=== PATIENT | female | born 1970 | race Hispanic/Latino ===

== ENCOUNTER 2019-10-24 19:14 | Emergency (ER) | payer SELFPAY ==
[2019-10-24 21:01] LABS: Absolute Lymphocytes (CBC) 2.7 K/uL (0.7-4.9); Basophils % 1.2 % (0-1.3); Hematocrit 39.8 % (36.0-45.0); Lymphocytes % 30.1 % (15.3-44.8); MPV 10.8 fL (7.6-11.3); RBC Red Blood Cell Count 4.81 M/uL (3.86-4.86)
[2019-10-24] MEDS ORDERED: ONDANSETRON 4 MG/2 ML VIAL ONE (21:04)
[2019-10-24] MEDS ORDERED: NA CHLORIDE 0.9% 1,000 ML ONE (21:04)
[2019-10-24] MEDS ORDERED: MORPHINE 4 MG/ML SYR ONE (21:04)
--- NOTE | 2019-10-24 21:09 | RAD REPORT ---
EXAM DESCRIPTION: CT - Abdomen Pelvis Wo Contrast - 10/24/2019 8:25 pm CLINICAL HISTORY: FLANK PAIN , abdominal pain for 2 weeks COMPARISON: No comparisons TECHNIQUE: Axial [address] imaging of the abdomen and pelvis was performed without IV contrast. No IV contrast was given because of allergy, abnormal renal function, patient refusal or physician re quest. No oral contrast. All CT scans are performed using dose optimization technique as appropriate and may include automated exposure control or mA/KV adjustment according to patient size. FINDINGS: No suspicious findings in the lung bases. The liver, spleen and pancreas show no suspicious findings on non-contrast imaging. Gallbladder and b iliary tree are also without suspicious finding. No hydronephrosis or suspicious renal mass. No significant adrenal finding. Isodense renal masses an d pyelonephritis cannot be excluded in the absence of IV contrast. The urinary bladder is without sig nificant finding. No acute uterine finding. No ovarian or adnexal abnormalities. No dilated bowel loops or bowel wall thickening. No acute appendicitis findings. A few small mesenter ic lymph nodes are seen. No free air, free fluid or inflammatory stranding. No hernia, mass or bulky lymphadenopathy. No acute or destructive bone process. The patient does have significant degenerative change. Advanced degenerative disc disease present at L3-4 and L5-S1. Significant spinal stenosis at L3-4 and signifi cant foraminal stenosis changes at L4-5 and severely on the left at L5-S1. IMPRESSION: CT abdomen and pelvis imaging shows no acute or suspicious finding in the peritoneal or retroperitoneal spaces. Patient has very advanced for a lumbar spine degenerative change with significant L3-4 central spinal stenosis and significant foraminal stenosis at the lower 3 disc levels most severe on the left at L5 -S1.
[2019-10-24 21:24] LABS: ALT/SGPT 22 U/L (12-78); AST/SGOT 16 U/L (15-37); Albumin 3.5 g/dL (3.4-5.0); Alkaline Phosphatase 87 U/L (45-117); BUN Blood Urea Nitrogen 16 mg/dL (7-18); Bicarbonate 28 mmol/L (21-32); Bilirubin Direct < 0.1 mg/dL (0-0.2); Bilirubin Total 0.3 mg/dL (0.2-1.0); Glucose Level 78 mg/dL (74-106); Lipase 168 U/L (73-393); Potassium 3.4 mmol/L (3.5-5.1); Protein, Total 7.8 g/dL (6.4-8.2); Sodium Level 139 mmol/L (136-145)
--- NOTE | 2019-10-24 21:46 | EDPHYS ---
Physician Documentation [facility] Name: Lois Marcial Age: 49 yrs Sex: Female : 1970 Arrival Date: 10/24/2019 Time: 19:15 Bed 23 Private MD: ED Physician Chriss Joiner HPI: 10/23 20:10 This 49 yrs old Female presents to ER via Ambulatory with complaints of Back mh7 Injury, Leg Pain. 20:11 The patient presents with pain that is acute, with no known mechanism of injury. The mh7 symptoms are located in the left flank. Onset: The symptoms/episode began/occurred 2 week(s) ago. The pain radiates to the left leg. Associated signs and symptoms: Pertinent positives: nausea, Pertinent negatives: abdominal pain, chest pain, constipation, dysuria, fever, headache, hematuria, incontinence, numbness, tingling, urinary retention, vomiting, weakness. 20:12 Onset: The symptoms/episode began/occurred and became worse 3 day(s) ago. The problem mh7 was sustained from unknown cause. Modifying factors: The patient symptoms are alleviated by nothing, the patient symptoms are aggravated by movement. Severity of symptoms: At their worst the symptoms were moderate, yesterday, in the emergency department the symptoms have improved, moderately. Historical: - Allergies: 19:22 No Known Allergies; ll1 - PMHx: 19:22 Hypertension; ll1 - PSHx: 19:22 Hernia repair; Tubal ligation; ll1 - Immunization history:: Flu vaccine is up to date. - Social history:: Smoking status: Patient denies any tobacco usage or history of. Patient/guardian denies using alcohol, street drugs, tobacco products. ROS: 20:12 Constitutional: Negative for fever, chills, and weight loss, Eyes: Negative for injury, mh7 pain, redness, and discharge, ENT: Negative for injury, pain, and discharge, Neck: Negative for injury, pain, and swelling, Cardiovascular: Negative for chest pain, palpitations, and edema, Respiratory: Negative for shortness of breath, cough, wheezing, and pleuritic chest pain, : Negative for injury, bleeding, discharge, and swelling, Skin: Negative for injury, rash, and discoloration, Neuro: Negative for headache, weakness, numbness, tingling, and seizure, Psych: Negative for depression, anxiety, suicide ideation, homicidal ideation, and hallucinations, Allergy/Immunology: Negative for hives, rash, and allergies, Endocrine: Negative for neck swelling, polydipsia, polyuria, polyphagia, and marked weight changes, Hematologic/Lymphatic: Negative for swollen nodes, abnormal bleeding, and unusual bruising. Exam: 20:12 Constitutional: This is a well developed, well nourished patient who is awake, alert, mh7 and in no acute distress. Head/Face: Normocephalic, atraumatic. Eyes: Pupils equal round and reactive to light, extra-ocular motions intact. Lids and lashes normal. Conjunctiva and sclera are non-icteric and not injected. Cornea within normal limits. Periorbital areas with no swelling, redness, or edema. Neck: Trachea midline, no thyromegaly or masses palpated, and no cervical lymphadenopathy. Supple, full range of motion without nuchal rigidity, or vertebral point tenderness. No Meningismus. Chest/axilla: Normal chest wall appearance and motion. Nontender with no deformity. No lesions are appreciated. Cardiovascular: Regular rate and rhythm with a normal S1 and S2. No gallops, murmurs, or rubs. Normal PMI, no JVD. No pulse deficits. Respiratory: Lungs have equal breath sounds bilaterally, clear to auscultation and percussion. No rales, rhonchi or wheezes noted. No increased work of breathing, no retractions or nasal flaring. 20:12 Skin: Warm, dry with normal turgor. Normal color with no rashes, no lesions, and no evidence of cellulitis. MS/ Extremity: Pulses equal, no cyanosis. Neurovascular intact. Full, normal range of motion. Neuro: Awake and alert, GCS 15, oriented to person, place, time, and situation. Cranial nerves II-XII grossly intact. Motor strength 5/5 in all extremities. Sensory grossly intact. Cerebellar exam normal. Normal gait. Psych: Awake, alert, with orientation to person, place and time. Behavior, mood, and affect are within normal limits. 20:12 Abdomen/GI: Inspection: abdomen appears normal, Bowel sounds: normal, in all quadrants, Palpation: mild abdominal tenderness, in the left lower quadrant, Rectal exam: the exam is deferred, because of patient request, Indicators: McBurney's point is not tender, Storm's sign is negative, Rovsing's sign is negative, Obturator sign is negative, Psoas sign is negative, Liver: no appreciated palpable abnormalities, Hernia: not appreciated. 20:12 Back: pain, is absent, ROM is normal, normal spinal alignment noted, CVA tenderness, that is moderate, is noted on the left, vertebral tenderness, is not appreciated, muscle spasm, is not present, Straight leg raises: of both lower extremities does not illicit pain. 20:12 : CVA tenderness, on the left, Pelvic Exam: The exam is refused by the patient/guardian. The risks and consequences are understood by the patient, Bladder: is normal, Rectal exam: is refused by patient or guardian. Vital Signs: 19:20 BP 135 / 74; Pulse 88; Resp 18; Temp 98.0; Pulse Ox 97% ; Pain 8/10; ll1 21:22 BP 132 / 77; Pulse 78; Resp 16; Temp 98.0(O); Pulse Ox 99% on R/A; Pain 3/10; ls4 MDM: 20:06 Patient medically screened. [facility] 21:42 Differential diagnosis: arthritis, chronic back pain, Fracture Hydronephrosis 7 Osteoarthritis Pyelonephritis ruptured disc, Ureterolithiasis. Data reviewed: vital signs, nurses notes, lab test result(s), CBC, electrolytes, urinalysis, radiologic studies, CT scan. Data interpreted: Pulse oximetry: on room air is 99 %. Interpretation: normal. Counseling: I had a detailed discussion with the patient and/or guardian regarding: the historical points, exam findings, and any diagnostic results supporting the discharge/admit diagnosis, lab results, radiology results, the need for outpatient follow up, to return to the emergency department if symptoms worsen or persist or if there are any questions or concerns that arise at home. Response to treatment: the patient's symptoms have resolved after treatment, the patient's blood pressure is in an acceptable range, mental status has returned to baseline, the patient no longer shows bradycardia, the patient is not short of breath, the patient is not tachycardic, the patient's pain is gone, the patient's temperature has normalized. 10/23 20: Order name: Basic Metabolic Panel; Complete Time: 21:25 [facility] 10/23 20:09 Order name: CBC with Diff; Complete Time: 21:25 [facility] 10/23 20:09 Order name: Hepatic Function; Complete Time: 21:25 [facility] 10/23 20:09 Order name: Lipase; Complete Time: 21:25 [facility] 10/23 21:50 Order name: Urine Dipstick--Ancillary (enter results) [facility] 10/23 21:50 Order name: Urine --Ancillary (enter results) [facility] 10/23 20:09 Order name: IV Saline Lock [facility] 10/23 20:09 Order name: Labs collected and sent [facility] 10/23 20:09 Order name: Urine Dipstick-Ancillary (obtain specimen); Complete Time: 21:16 [facility] 10/23 20:09 Order name: Urine Test (obtain specimen); Complete Time: 21:16 [facility] 10/23 20:09 Order name: CT Abd/Pelvis - Without Contrast; Complete Time: 21:25 [facility] Administered Medications: 20:52 Drug: NS 0.9% 1000 ml Route: IV; Rate: 1000 ml; Site: right antecubital; ls4 20:52 Drug: morphine 4 mg Route: IVP; Site: right antecubital; ls4 20:52 Drug: Zofran (Ondansetron) 4 mg Route: IVP; Site: right antecubital; ls4 Disposition: 10/24 01:49 Co-signature as Attending Physician, Chriss Joiner MD. [facility] Disposition: 10/24/19 21:45 Discharged to Home. Impression: Sciatica, left side, Flank Pain. - Condition is Stable. - Discharge Instructions: Sciatica, [id number], Flank Pain, [id number]. - Prescriptions for ketorolac 10 mg Oral tablet - take 1 tablet by ORAL route every 8 hours As needed not to exceed 40 mg in 24hrs; 12 tablet. Robaxin 500 mg Oral Tablet - take 2 tablet by ORAL route every 6 hours As needed; 40 tablet. - Medication Reconciliation Form, Thank You Letter, Antibiotic Education, Prescription Opioid Use form. - Follow up: Private Physician; When: 1 - 2 days; Reason: Worsening of condition, Recheck today's complaints, Continuance of care, Re-evaluation by your physician. - Problem is an ongoing problem. - Symptoms have improved. Signatures: Dispatcher [employer] EDJenniffer Vogt RN RN ls4 Shaniqua Longoria RN RN ll1 Chriss Joiner MD MD mh7 Corrections: (The following items were deleted from the chart) 10/23 22:07 21:45 10/24/2019 21:45 Discharged to Home. Impression: Sciatica, left side; Flank Pain. ls4 Condition is Stable. Forms are Medication Reconciliation Form, Thank You Letter, Antibiotic Education, Prescription Opioid Use. Follow up: Private Physician; When: 1 - 2 days; Reason: Worsening of condition, Recheck today's complaints, Continuance of care, Re-evaluation by your physician. Problem is an ongoing problem. Symptoms have improved. mh7
--- NOTE | 2019-10-24 21:46 | ER ---
Nurse's Notes [facility] Name: Lois Marcial Age: 49 yrs Sex: Female : 1970 Arrival Date: 10/24/2019 Time: 19:15 Bed 23 Private MD: Diagnosis: Sciatica, left side;Flank Pain Presentation: 10/23 19:20 Chief complaint: Patient states: Left lower back pain for 2 weeks, radiates down left ll1 leg. Pain is more severe for the past 3 days. No known trauma. Coronavirus screen: Client denies travel out of the [place] in the last 14 days. At this time, the client does not indicate any symptoms associated with coronavirus-19. Ebola Screen: Patient denies travel to an Ebola-affected area in the 21 days before illness onset. Initial Sepsis Screen: Does the patient meet any 2 criteria? No. Patient's initial sepsis screen is negative. Risk Assessment: Do you want to hurt yourself or someone else? Patient reports no desire to harm self or others. Onset of symptoms was October 10, 2019. 19:20 Method Of Arrival: Ambulatory 1 19:20 Acuity: ERROL 4 ll1 19:43 Initial Sepsis Screen: Does the patient have a suspected source of infection? No. ls4 Patient's initial sepsis screen is negative. Historical: - Allergies: 19:22 No Known Allergies; ll1 - PMHx: 19:22 Hypertension; ll1 - PSHx: 19:22 Hernia repair; Tubal ligation; ll1 - Immunization history:: Flu vaccine is up to date. - Social history:: Smoking status: Patient denies any tobacco usage or history of. Patient/guardian denies using alcohol, street drugs, tobacco products. Screenin:37 Abuse screen: Denies threats or abuse. Denies injuries from another. Nutritional ls4 screening: No deficits noted. Tuberculosis screening: No symptoms or risk factors identified. Fall Risk None identified. Assessment: 19:34 General: Appears uncomfortable, Behavior is fussy. Pain: Complains of pain in lumbar ls4 area Pain currently is 8 out of 10 on a pain scale. Neuro: Level of Consciousness is awake, alert, obeys commands, Oriented to person, place, time, situation, Moves all extremities. Full function Gait is steady. 21:03 Reassessment: Patient appears in no apparent distress at this time. Patient and/or ls4 family updated on plan of care and expected duration. Pain level reassessed. Patient is alert, oriented x 3, equal unlabored respirations, skin warm/dry/pink. Patient states symptoms have improved. 22:06 Reassessment: Patient appears in no apparent distress at this time. Patient and/or ls4 family updated on plan of care and expected duration. Pain level reassessed. Patient is alert, oriented x 3, equal unlabored respirations, skin warm/dry/pink. Patient states feeling better. Vital Signs: 19:20 BP 135 / 74; Pulse 88; Resp 18; Temp 98.0; Pulse Ox 97% ; Pain 8/10; ll1 21:22 BP 132 / 77; Pulse 78; Resp 16; Temp 98.0(O); Pulse Ox 99% on R/A; Pain 3/10; ls4 ED Course: 19:15 Patient arrived in ED. es 19:22 Triage completed. ll1 19:22 Arm band placed on Patient placed in an exam room, on a stretcher. ll1 19:34 Jenniffer Hyatt, RN is Primary Nurse. ls4 19:37 Resting quietly. ls4 19:37 Patient has correct armband on for positive identification. Bed in low position. Call ls4 light in reach. Side rails up X 1. Pulse ox on. NIBP on. Verbal reassurance given. 19:37 No provider procedures requiring assistance completed. ls4 19:50 Chriss Joiner MD is Attending Physician. [facility] 20:24 CT Abd/Pelvis - Without Contrast In Process Unspecified. EDMS 21:03 Initial lab(s) drawn, by me, sent to lab. Urine collected: clean catch specimen, clear. ls4 Inserted saline lock: 20 gauge in right antecubital area, using aseptic technique. Blood collected. 22:06 IV discontinued, intact, bleeding controlled, No redness/swelling at site. Pressure ls4 dressing applied. Administered Medications: 20:52 Drug: NS 0.9% 1000 ml Route: IV; Rate: 1000 ml; Site: right antecubital; ls4 20:52 Drug: morphine 4 mg Route: IVP; Site: right antecubital; ls4 20:52 Drug: Zofran (Ondansetron) 4 mg Route: IVP; Site: right antecubital; ls4 Outcome: 21:45 Discharge ordered by . karishma 22:06 Discharged to home ambulatory. ls4 22:06 Condition: good 22:06 Discharge instructions given to patient, Instructed on discharge instructions, follow up and referral plans. medication usage, safety practices, Demonstrated understanding of instructions, follow-up care, medications, Prescriptions given X 2. 22:07 Patient left the ED. ls4 Signatures: Dispatcher [employer] Maryjo Oakes Lisa, RN RN ls4 Shaniqua Longoria RN RN ll1 Chriss Joiner MD MD 7 Corrections: (The following items were deleted from the chart) 21:04 19:37 Patient did not have IV access during this emergency room visit. ls4 ls4
[2019-10-24 22:00] LABS: Urine Blood TRACE (NEG); Urine Glucose NEGATIVE (NEG); Urine Protein NEGATIVE (NEG); Urine Specific Gravity 1.025 (1.005-1.030)
[2019-10-28 18:19] VITALS: TEMP 98
[2019-10-28 18:21] VITALS: BP 132/77; O2SAT 99
== END 2019-10-24 22:07 | disposition home or self-care (01) ==
LOC: ER 19:14
DX: M54.32 Sciatica, left side (principal); R10.9 Unspecified abdominal pain
CPT/HCPCS: 36415; 74176; 80048; 80076; 81003; 81025; 83690; 85025; 96374; 96375; 99284; J2405; J7030